=== PATIENT | female | born 1985 | race Caucasian/White ===

== ENCOUNTER 2018-05-15 17:19 | Emergency (ER) | payer MEDICAID ==
[~2018-05-15] VITALS: Ht 152.4 cm; Wt 72.6 kg
[2018-05-15 17:31] VITALS: BP 126/89; Ht 152.4 cm; Wt 72.6 kg
== END 2018-05-15 19:40 | disposition left against medical advice (07) ==
LOC: ED 17:19
DX: Z53.21 Procedure and treatment not carried out due to patient leaving prior to being seen by health care provider (principal)